=== PATIENT | female | born 1975 | race Caucasian/White ===

== ENCOUNTER 2018-01-01 05:53 | Day surgery (SDC) | payer OTHER ==
[2018-01-01] MEDS ORDERED: FENTAnyl 50 MCG/ML VIAL (07:00)
[2018-01-01] MEDS ORDERED: LIDOCAINE 4% SOLUTION 50 ML BTL (09:57)
[2018-01-01] MEDS ORDERED: MIDAZOLAM 1 MG/ML 2 ML INJ ×2 (09:57)
== END 2018-01-01 11:06 | disposition home or self-care (01) ==
LOC: GIL 05:53
DX: R12 Heartburn (principal); K21.0 Gastro-esophageal reflux disease with esophagitis
CPT/HCPCS: 43239; 84703; 88305; 88312; 88313